=== PATIENT | male | born 1965 | race Caucasian/White ===

== ENCOUNTER → 2016-07-22 | Outpatient (CLI) | payer OTHER ==
[~2016-07-22] MED LIST: ANTI-DIARRHEAL2 M1 PO; ASPIRIN EC81 M1 PO; ATORVASTATIN CA80 MG PO; BREO ELLIPTA 11 EACH INH; BRILINTA90 MG PO; COREG6.25 M1 PO; DOXYCYCLINE PO; LIPITOR PO; LISINOPRIL2.5 MG PO; METFORMIN HCL500 M1 PO; NICOTINE TRANSDE7 MG TD; PREDNISONE10 MG PO; PROTONIX PO; QUETIAPINE FUM200 MG PO; SERTRALINE HCL100 M1 PO; ZOLOFT100 MG PO
--- NOTE | ~2016-07-22 | CR21 ---
[facility] A Service of [facility] RADIOLOGY TEXT RESULTS PATIENT: LELIA CONTRERAS LOCATION: [facility] : 63 UNIT #: [id number] AGE: [address]: Lorie Tafoya MD SEX: M ORDER DR: [id number] [facility] [address] [place] [employer], [place] [address] [id number] O MR#: [id number] Acc #: [id number] NAME: LELIA CONTRERAS : 1965 SEX: M STUDY DATE/TIME: 07/22/2016 14:37 UNIT: [facility] ROOM: STUDY DESCRIPTION: CR Ankle Min 3 Views Rt Attending Physician: Lorie Tafoya M.D. Referring Physician: Lorie Tafoya M.D. Ordering Physician: Lorie Tafoya M.D. Primary Care Physician: Lorie Tafoya M.D. MEDICAL IMAGING REPORT This report is preliminary unless electronic signature is present EXAM Right ankle. HISTORY Right ankle pain and swelling for the past 2 weeks. TECHNIQUE Three views of the ankle were obtained. FINDINGS AP, lateral, and oblique projections of the ankle show satisfactory integrity of the joint mortise with a smooth articular surface. There is no identifiable fracture, dislocation, or radiopaque foreign body. IMPRESSION Normal right ankle. Dictated by... Eber English M.D. THIS IS AN ELECTRONICALLY VERIFIED REPORT Eber English M.D. at 07/26/2016 2:26 PM RAVINDRA/theresa TD: 07/22/2016 21:13 JOB #: [id number] MEDICAL IMAGING REPORT Page 1 of 1 COPY
--- NOTE | ~2016-07-22 | CR253 ---
[facility] A Service of [facility] RADIOLOGY TEXT RESULTS PATIENT: LELIA CONTRERAS LOCATION: [facility] : 63 UNIT #: [id number] AGE: [address]: Lorie Tafoya MD SEX: M ORDER DR: [id number] [facility] [address] [place], [place] [address] [id number] O MR#: [id number] Acc #: [id number] NAME: LELIA CONTRERAS : 1965 SEX: M STUDY DATE/TIME: 07/22/2016 14:35 UNIT: [facility] ROOM: STUDY DESCRIPTION: CR Tibia and Fibula 2 Views Rt Attending Physician: Lorie Tafoya M.D. Referring Physician: Lorie Tafoya M.D. Ordering Physician: Lorie Tafoya M.D. Primary Care Physician: Lorie Tafoya M.D. MEDICAL IMAGING REPORT This report is preliminary unless electronic signature is present EXAM Right tibia and fibula. HISTORY Right leg pain and swelling for the past 2 weeks. TECHNIQUE Two views of the tibia and fibula were obtained. FINDINGS There is no evidence of fracture, dislocation, or radiopaque foreign body. IMPRESSION Normal tibia and fibula. Dictated by... Eber English M.D. THIS IS AN ELECTRONICALLY VERIFIED REPORT Eber English M.D. at 07/26/2016 2:25 PM RAVINDRA/theresa TD: 07/22/2016 21:12 JOB #: [id number] MEDICAL IMAGING REPORT Page 1 of 1 COPY
== END | disposition home or self-care (01) ==
LOC: CRAD 14:11
DX: M25.571 Pain in right ankle and joints of right foot (principal); M79.661 Pain in right lower leg; E11.9 Type 2 diabetes mellitus without complications; I10 Essential (primary) hypertension; Z86.79 Personal history of other diseases of the circulatory system
CPT/HCPCS: 73590; 73610